=== PATIENT | male | born 1990 | race Caucasian/White ===

== ENCOUNTER 2024-01-03 10:15 | Emergency (ER) | payer BC, OTHER ==
[~2024-01-03] VITALS: Ht 170.2 cm; Wt 69.2 kg
[2024-01-03] MEDS ORDERED: CEPH500C PO (12:15)
[2024-01-03 12:27] VITALS: BP 128/73; PULSE 82; RESP 16; TEMP 97.6; O2SAT 98
== END 2024-01-03 12:30 | disposition home or self-care (01) ==
LOC: ER 10:15
DX: L02.212 Cutaneous abscess of back [any part, except buttock and flank] (principal); Z98.890 Other specified postprocedural states
CPT/HCPCS: 76705